=== PATIENT | male | born 1955 | race Caucasian/White ===

== ENCOUNTER 2021-11-02 07:51 | Emergency (ER) | payer MEDICARE, OTHER, SELFPAY ==
[2021-11-02 08:13] VITALS: BP 159/110; PULSE 100; RESP 22; TEMP 35.9; O2SAT 95
--- NOTE | 2021-11-02 08:14 | ED_ITS ---
HPI - Wound/Laceration General: Chief Complaint: Wound/Laceration Stated Complaint: R index finger lac Time Seen by Provider: 11/02/21 08:06 Source: patient Mode of arrival: ambulatory Limitations: no limitations History of Present Illness: 66-year-old male presents to the ER today for a left index finger laceration. Patient reports he was holding a glass jar and dropped it on the bathroom sink, cutting the left finger. Patient reports there is quite a bit of bleeding however he did clean it well at home. Patient reports last tetanus shot was unknown however he does not wish to have one today. Patient reports no pain and no issues with range of motion of that finger. Review of Systems General: Reports: 10 or more systems reviewed and unremarkable except in HPI and below PFSH ED PFSH: Medical History Benign diastolic hypertension BPH (benign prostatic hyperplasia) Degenerative joint disease of left hip Dermatitis Essential tremor Generalized anxiety disorder Generalized osteoarthritis Major depression KE (obstructive sleep apnea) Surgical History History of Achilles tendon repair History of arthroscopy of both knees History of cataract surgery History of tonsillectomy Family History Mother Lung disease emphysema Cancer throat Father CAD (coronary artery disease) Hypertension Diabetes Social History Smoking and tobacco status: former smoker Quit status (tobacco): has quit using tobacco Year quit tobacco: 2021 Alcohol intake: former Marital status: 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 Physical Exam Const: COMMON NORMALS: no acute distress, average body habitus, patient oriented x3, no limitations, alert and well nourished HENMT: COMMON NORMALS: external ears normal, Normal external nose present and moist oral mucous membranes NOSE: Normal external nose present EXTERNAL EAR: Yes external ears normal Eye: COMMON NORMALS: conjunctivae normal CONJUNCTIVA: Yes conjunctivae normal Resp: COMMON NORMALS: normal respiratory effort EFFORT & INSPECTION: Yes able to speak in complete sentences OTHER: some expiratory wheezes noted Cardio: COMMON NORMALS: regular rate and regular rhythm RATE: regular rate RHYTHM: regular rhythm Extremity: NARRATIVE EXTREMITY EXAM: Patient has normal range of motion of the left index finger. No numbness or tingling reported. Laceration noted to the tip of the left index finger Neuro: COMMON NORMALS: patient oriented x3 SENSORIUM/ORIENTATION: Yes alert Psych: COMMON NORMALS: mental status grossly normal, Normal thought process present and cooperative THOUGHT PROCESS: Normal thought process present Skin: NARRATIVE SKIN EXAM: Patient has a U-shaped laceration to the distal tip of the left index finger palmar side. There is active bleeding at this time. Procedures Laceration Laceration 1: Site: hand (left index finger) Side (If applicable): left Size (cm): 2 Description: other (ushaped) Depth: simple, single layer Local Anesthetic: lidocaine 2% Amount of anesthesia used (mL): 2 Pre-repair: irrigated extensively Skin layer closed with: other (ethilon) Size (cm): 5-0 Number of sutures: 2 Technique: simple, interrupted Course ED course: 66-year-old male presents to the ER today with a left index finger laceration. This occurred this morning as he was holding a glass jar and dropped it on the bathroom counter. Patient reports there was some bleeding at home and he cleaned the wound well. He reports his last tetanus shot is unknown however he does not wish to have one today. Patient denies any range of motion issues or numbness or tingling. Wound examined in the ER today and we will close with sutures. Vital Signs: Vital signs: Vital Signs Temperature 96.7 F L 11/02/21 08:13 Pulse Rate 100 11/02/21 08:13 Respiratory Rate 22 H 11/02/21 08:13 Blood Pressure 159/110 11/02/21 08:13 Pulse Oximetry 95 11/02/21 08:13 Oxygen Delivery Me thod 11/02/21 08:13 MDM - Wound/Laceration Medical Decision Making 66-year-old male presents to the ER today with a left index finger laceration. This occurred this morning as he was holding a glass jar and dropped it on the bathroom counter. Patient reports there was some bleeding at home and he cleaned the wound well. He reports his last tetanus shot is unknown however he does not wish to have one today. Patient denies any range of motion issues or numbness or tingling. Wound examined in the ER today and we will close with sutures. Wound was soaked in antibacterial soap and water and explored to make sure there were no foreign bodies. See laceration note for wound repair. Wound care discussed. Leave current dressing on x48 hours then remove it and clean wound once daily and apply a new dressing. Follow-up in 5 to 7 days with PCP for suture removal. Return to the ER with new or worsening symptoms. Patient verbalized understanding and was in agreement with the treatment plan. Critical Care Time Critical Care Time: Critical Care Time: No Discharge Plan Discharge Patient Disposition: Home Clinical Impression: Laceration of finger, index Qualifiers: Encounter type: initial encounter Damage to nail status: without damage Foreign body presence: without foreign body Laterality: left Qualified Code(s): S61.211A - Laceration without foreign body of left index finger without damage to nail, initial encounter Condition: Stable Prescriptions: No Action propranolol 60 mg capsule,extended release 24 hr 120 mg PO DAILY tamsulosin 0.4 mg capsule 0.4 mg PO DAILY venlafaxine 150 mg capsule,extended release 24hr 150 mg PO DAILY lisinopril 20 mg tablet 20 mg PO DAILY Combivent Respimat 20-100 mcg/actuation mist 1 puff inhalation Q6H Qty: 4 2RF benzonatate 100 mg capsule 100 mg PO TID PRN (Reason: cough) Qty: 45 0RF azithromycin 250 mg tablet See Rx Instructions PO .COMPLEX Qty: 6 0RF Rx Instructions: For 250 mg dose pack: take 500 mg today (day 1), then 250 mg for 4 days (days 2-5) PO albuterol sulfate [Ventolin HFA] 90 mcg/actuation HFA aerosol inhaler 1 inh inhalation QID PRN (Reason: shortness of breath or wheezing) Qty: 8.5 0RF Discharge Orders: Discharge ED (Routine); Ordered 11/02/21 Ordered By: Lizzeth Navas Referrals: Chilo Mendiola [employer] [Primary Care Provider] - Discharge Diet: Usual diet Discharge Activity: Resume usual activity Patient Instructions: Opioid Safety Activity Restrictions/Additional Instructions: Keep current dressing on x24 hours. Remove dressing in 24 hours and clean with warm soapy water and change dressing once daily. Recommend suture removal in 5 to 7 days. Return to the ER with new or worsening symptoms. Coding Level of Care Code ED Customer Counter Associate for Trevor Roman
[2021-11-02 08:49] VITALS: BP 157/119; PULSE 95; RESP 20; O2SAT 95
[2021-11-02] MEDS: lidocaine 2% INJ 20 mL INJECTION (08:53)
[2021-11-02 08:56] VITALS: BP 157/119; PULSE 95; RESP 20; O2SAT 95
== END 2021-11-02 08:55 | disposition home or self-care (01) ==
PROVIDERS: Emergency Provider Physician Assistant; PCP Clinical Nurse Specialist Adult Health
DX: S61.211A Laceration without foreign body of left index finger without damage to nail, initial encounter (principal); Z87.891 Personal history of nicotine dependence; W25.XXXA Contact with sharp glass, initial encounter
CPT/HCPCS: 12001; 99283

== ENCOUNTER 2022-01-15 19:45 | Emergency (ER) | payer MEDICARE, OTHER, SELFPAY ==
[2022-01-15] VITALS (11 sets, daily range): BP systolic 129–191; BP diastolic 81–143; PULSE 88–115; RESP 18–102; TEMP 36.4; O2SAT 92–97; BMI 36.6
--- NOTE | 2022-01-15 19:49 | XRR_ITS ---
PROCEDURE INFORMATION: Exam: XR Chest Exam date and time: 01/15/2022 8:13 PM Age: 66 years old Clinical indication: Other: Stroke TECHNIQUE: Imaging protocol: Radiologic exam of the chest. Views: 1 view. COMPARISON: CT cervical spin wo con* [id number] 01/15/2022 7:53 PM FINDINGS: Lungs: Mild right basilar atelectasis and/or pneumonia. Pleural spaces: Unremarkable. No pleural effusion. No pneumothorax. Heart/Mediastinum: Mild globular cardiomegaly consistent with 4-chamber enlargment and/or pericardial effusion. Bones/joints: Unremarkable. XR/XR chest 1V portable [id number] IMPRESSION: 1. Mild globular cardiomegaly consistent with 4-chamber enlargment and/or pericardial effusion. 2. Mild right basilar atelectasis and/or pneumonia.
--- NOTE | 2022-01-15 19:49 | CTR_ITS ---
PROCEDURE INFORMATION: Exam: CT Cervical Spine Without Contrast Exam date and time: 01/15/2022 7:53 PM Age: 66 years old Clinical indication: Patient HX: RT sided weakness; Additional info: AMS TECHNIQUE: Imaging protocol: Computed tomography of the cervical spine without contrast. Radiation optimization: All CT scans at this facility use at least one of these dose optimization techniques: automated exposure control; mA and/or kV adjustment per patient size (includes targeted exams where dose is matched to clinical indication); or iterative reconstruction. COMPARISON: CT head wo con* [id number] 01/15/2022 7:47 PM RADIATION DOSE METRICS: Total DLP (mGy-cm): 509.29 FINDINGS: Limitations: Study is mildly limited by patient motion. Bones/joints: There is reversal of the normal lordotic curvature of the cervical spine which could be due to positioning. There is foraminal narrowing bilaterally at C5-C6. Degenerative changes are present in facet joints bilaterally at multiple levels in the upper cervical spine. There is degenerative change in the anterior atlanto axial joint. There is an accessory ossicle below the arch of C1. No fracture is identified. Lungs: Lung apices are normal. Soft tissues: Unremarkable. Other findings: There is severe narrowing of the C5-C6 disc space with anterior and posterior osteophytes and sclerosis of the adjacent endplates in keeping with degenerative changes. CT/CT cervical spin wo con* [id number] IMPRESSION: 1. No fracture is identified. 2. Degenerative changes.
--- NOTE | 2022-01-15 19:49 | CTR_ITS ---
PROCEDURE INFORMATION: Exam: CT Head Without Contrast Exam date and time: 01/15/2022 7:54 PM Age: 66 years old Clinical indication: Stroke-like symptoms; RT upper extremity weakness; Additional info: Symptoms of acute stroke TECHNIQUE: Imaging protocol: Computed tomography of the head without contrast. Radiation optimization: All CT scans at this facility use at least one of these dose optimization techniques: automated exposure control; mA and/or kV adjustment per patient size (includes targeted exams where dose is matched to clinical indication); or iterative reconstruction. Other technique: STROKE PROTOCOL was implemented. COMPARISON: No relevant prior studies available. RADIATION DOSE METRICS: Total DLP (mGy-cm): 1017.38 FINDINGS: Limitations: Study is somewhat limited by patient motion. Brain: There is small old infarct in the mid left cerebellar hemisphere. There is moderate cortical atrophy. Low-density changes in the white matter are consistent with nonspecific small vessel chronic ischemic change. There is no intracranial mass, hemorrhage or edema. Cerebral ventricles: There is cavum septum pellucidum and vergae. Paranasal sinuses: There are multiple small mucous retention cysts in the bilateral maxillary antra. There is partial opacification of multiple ethmoid air cells. There is also some mucosal thickening in the frontal sinus which is not fully pneumatized. Mastoid air cells: Visualized mastoid air cells are well aerated. Bones/joints: Unremarkable. No acute fracture. Soft tissues: Unremarkable. Vasculature: There are findings suspicious for dense vessel sign in the left middle cerebral artery which would be worrisome for thrombotic disease. This is not a definite finding however due to the motion and other related artifacts on this exam. CT/CT head wo con* [id number] IMPRESSION: 1. Question of dense vessel sign left middle cerebral artery 2. Old left cerebellar infarct 3. No acute infarct is demonstrated. ASSESSMENT: ASPECTS ([place] Stroke Program Early CT Score) is 10.
--- NOTE | 2022-01-15 19:49 | ECG_ITS ---
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 Measurements Intervals [place] Rate: 104 P: CO: QRS: 86 QRSD: 154 T: 55 QT: 393 QTc: 518 Interpretive Statements ATRIAL FIBRILLATION WITH RAPID VENTRICULAR RESPONSE WITH ABERRANT CONDUCTION OR VENTRICULAR PREMATURE COMPLEXES INTRAVENTRICULAR CONDUCTION DELAY [130+ ms QRS DURATION] No previous ECG available for comparison Electronically Signed On 01-16-2022 8:24:34 CDT by Adan Capone M.D. [id number]
--- NOTE | 2022-01-15 19:49 | ED_ITS ---
HPI - Neuro Symptoms/Deficit General: Chief Complaint: Neuro Symptoms/Deficit Stated Complaint: STROKE Time Seen by Provider: 01/15/22 19:49 Limitations: other (acuity of condition) History of Present Illness: 66-year-old left-handed gentleman presenting to the emergency department as a stroke activation. He reportedly has been at baseline health and was last definitively normal at 5:30 PM on 01/15. He apparently was sitting on his computer when he felt abnormal and tried to get up at which point he fell to the ground. He was subsequently found and EMS was activated. EMS activated stroke code from the field due to facial droop and right-sided hemiparesis. No history of similar. Patient not on anticoagulation. Former smoker and does have a history of hypertension. Last Observed Normal: 17:30 Timing confirmed by: family member Location: speech, right face, right arm and right leg History of same: No Severity: severe Relieving factors: none Exacerbating factors: none On Anticoagulants: No Review of Systems General: Reports: 10 or more systems reviewed and unremarkable except in HPI and below PFSH ED PFSH: Medical History Benign diastolic hypertension BPH (benign prostatic hyperplasia) Degenerative joint disease of left hip Dermatitis Essential tremor Generalized anxiety disorder Generalized osteoarthritis Major depression KE (obstructive sleep apnea) Surgical History History of Achilles tendon repair History of arthroscopy of both knees History of cataract surgery History of tonsillectomy Family History Mother Lung disease emphysema Cancer throat Father CAD (coronary artery disease) Hypertension Diabetes Social History Smoking and tobacco status: former smoker Quit status (tobacco): has quit using tobacco Year quit tobacco: 2021 Alcohol intake: former Marital status: 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 NIH stroke score NIHSS: Level Of Consciousness - 1a: 0 Level Of Consciousness Questions - 1b: Both Correct Level Of Consciousness Commands - 1c: Both Correct Best Gaze - 2: Partial Gaze Palsy Visual [place] - 3: Partial Hemianopia Facial Palsy - 4: Partial Paralysis Motor Arm Right - 5: No Movement Motor Arm Left - 5: No Drift Motor Leg Right - 6: No Effort Against [place] Motor Leg Left - 6: No Drift Limb Ataxia - 7: Absent Sensory - 8: Severe To Total Loss Best Language - 9: Mild/Moderate Aphasia Dysarthia - 10: Mild/Moderate Dysarthia Extinction And Inattention - 11: 1 Score: Total Score: 16 Physical Exam Const: COMMON NORMALS: alert GENERAL APPEARANCE: cooperative and well developed HENMT: COMMON NORMALS: normocephalic and atraumatic HEAD & SCALP: normocephalic and atraumatic Eye: COMMON NORMALS: conjunctivae normal CONJUNCTIVA: Yes conjunctivae normal SCLERA: sclerae normal Neck/C-Spine: COMMON NORMALS: supple GENERAL: Yes trachea midline Resp: COMMON NORMALS: clear to auscultation bilaterally EFFORT & INSPECTION: Yes able to speak in complete sentences AUSCULTATION: clear to auscultation bilaterally Cardio: COMMON NORMALS: regular rate and regular rhythm RATE: regular rate RHYTHM: regular rhythm GI: COMMON NORMALS: Soft to palpation PALPATION: Yes Soft to palpation and No Tenderness to palpation present (GI) Extremity: NARRATIVE EXTREMITY EXAM: Superficial abrasions noted to bilateral lower extremities GENERAL: Yes normal exam except as noted and No edema Neuro: COMMON NORMALS: moves all extremities SENSORIUM/ORIENTATION: Yes alert and No Orientation impaired OTHER: Right forehead sparing facial droop. There appears to be left-sided gaze preference. Right hemianopia. Right-sided upper and lower extremity flaccid paralysis with absence of sensation. Psych: COMMON NORMALS: mental status grossly normal and Normal thought process present THOUGHT PROCESS: Normal thought process present Course ED course: - Patient was seen and evaluated by me at bedside - Patient placed on cardiac monitors, IV access obtained - Initial evaluation notable for exam as above. NIHSS 16 - Some delay in obtaining adequate CT head without contrast secondary to patient movement artifact and required multiple free scans. Given possible history of fall CT cervical spine was included. - Discussed with patient, patient's , and also our neurology service. Plan to proceed with tPA administration. Blood pressure controlled with labetalol. - Labs notable for no leukocytosis, normal hemoglobin. Metabolic panel without acute electrolyte derangement to explain symptoms. Glucose 179. Initial troponin mildly elevated at 25 ng/L though patient has not had chest pain. No evidence of UTI, blood in urine likely secondary to Jonas catheter placement. Toxic ingestions negative. - Imaging notable for no acute intracranial hemorrhage or mass-effect. Dense vessel sign of the left MCA questionable. Chest x-ray with cardiomegaly. After tPA initiation patient returned to CT scanner for CTA head and neck. Patient appears to have various incidental findings however most pertinent M2 and M3 segment occlusions. - Upon serial reexamination after treatment the patient was similar without significant improvement after tPA administration. - Based on patient history, evaluation, and testing as interpreted the most likely cause of the patient's condition is acute ischemic stroke with occlusion of M2 and M3 segments. - The results of ED evaluation were discussed with the patient including plan for transfer due to requirement for level of care not available if discharged to prevent significant worsening/deterioration. - Discussed with neurology stroke team at [facility] [place] in [place] who accepted the patient for Dr. Etienne with neuro interventional radiology. Plan to be a direct admit the patient will stop in emergency department for CTP. Note: Click bubbles or prepopulated [place] in note writing are used for assistance with data collection and billing and are inherently more limited than narrative and other text portions of this note. Please use narrative for additional cli nical history and defer to narrative/free test for any case of contradictory information. If information appears in only free text or click bubble it should be considered present or absent as reported. Please contact note principal technical writer for clarifications of clinical information or contradictory information. MDM is a brief summary, contradictory or erroneous seeming information should be clarified and full note should be reviewed. Vital Signs: Vital signs: Vital Signs Temperature 97.5 F L 01/15/22 20:03 Pulse Rate 103 H 01/15/22 22:35 Respiratory Rate 102 H 01/15/22 22:35 Blood Pressure 141/92 01/15/22 22:35 Pulse Oximetry 96 01/15/22 22:35 Oxygen Delivery Me thod 01/15/22 21:53 Oxygen Flow Rate 2 01/15/22 21:53 MDM - Neuro Symptoms/Deficit Medical Decision Making 66-year-old gentleman without known history of stroke or brain abnormality presenting with strokelike symptoms with last known normal 5:30 PM on 01/15. N IHSS 16 most notably for right-sided deficits and left gaze preference. tPA administered without significant improvement. CTA shows M2 and M3 segments occlusion which may be amenable to endovascular retrieval. Patient accepted to [facility] for additional neurologic evaluation and interventional neurology. Medical Records I reviewed the patient's medical records. Lab Data I reviewed the patient's lab results. : 01/15/22 20:05 01/15/22 20:05 Radiology Impressions Cervical Spine CT 01/15/22 19:49 IMPRESSION: 1. No fracture is identified. 2. Degenerative changes. Chest X-Ray 01/15/22 19:49 IMPRESSION: 1. Mild globular cardiomegaly consistent with 4-chamber enlargment and/or pericardial effusion. 2. Mild right basilar atelectasis and/or pneumonia. Head CT 01/15/22 19:49 IMPRESSION: 1. Question of dense vessel sign left middle cerebral artery 2. Old left cerebellar infarct 3. No acute infarct is demonstrated. ASSESSMENT: ASPECTS (Rayne Stroke Program Early CT Score) is 10. ADDENDUM: 01/15/222029 Addendum: THIS REPORT CONTAINS FINDINGS THAT MAY BE CRITICAL TO PATIENT CARE. The findings were verbally communicated via telephone conference with Manuel Miranda at 8:28 PM CDT on 01/15/2022. The findings were acknowledged and understood. Head/Neck CTA 01/15/22 20:27 IMPRESSION: Occlusion of 2 of the 3 left MCA branches including the M2 segment and portions of the M3 segment with reconstitution of the distal M3 segment and M4 segment from collateral flow. IMPRESSION: 1. Mild groundglass opacities and/or interstitial opacities consistent with mild allergic pneumonitis, infectious pneumonitis, atypical pulmonary edema and/or volume overload. 2. 2.2 cm left thyroid nodule on coronal series 6, images 126-127, with recommendation for nonemergent thyroid ultrasound to rule out neoplasm. 3. Codominant vertebral arteries. 4. C-shaped tortuosity of the proximal cervical ICAs bilaterally which are retropharyngeal in the region of the hypopharynx. Axial series 4, image 181. 5. Motion artifact in the region of the right carotid bifurcation and origin of the right ICA. Minimum proximal right ICA diameter 4 mm in the region of motion artifact with more distal diameter of 4 mm. 6. No right ICA stenosis by NASCET/SRU criteria. 7. Mild 25% left ICA stenosis secondary to prominent noncalcified plaque in the proximal left ICA, by direct measurement using NASCET criteria. COMMENTS: Consistent with the [employer]'s Incidental Findings Committee white paper (J Am Che Radiol 2015): In patients aged 35 years and older with an incidental thyroid nodule equal to or greater than 1.[address], MRI or extrathyroidal US, further evaluation with dedicated thyroid US is recommended for patients with normal life expectancy and without comorbidities. For smaller nodules without suspicious features, no further evaluation or follow up is recommended. REFERENCES: NASCET CRITERIA. The degree of stenosis in the cervical segment of the internal carotid artery is based on NASCET criteria. Normal is no stenosis. Mild is less than 50% stenosis. Moderate is 50-69% stenosis. Severe is 70% to 99% stenosis. Total occlusion is no detectable patent lumen. ADDENDUM: 01/15/222228 THIS REPORT CONTAINS FINDINGS THAT MAY BE CRITICAL TO PATIENT CARE. The findings were verbally communicated via telephone conference with Manuel Miranda at 10:27 PM CDT on 01/15/2022. The findings were acknowledged and understood. Laboratory Results WBC 8.8 10^3/uL (4.0-10.0) 01/15/22 20:05 RBC 5.20 10^6/uL (4.1-5.3) 01/15/22 20:05 Hgb 16.1 g/dL (11.7-16.6) 01/15/22 20:05 Hct 47.5 % (42.0-52.0) 01/15/22 20:05 MCV 91.3 fl (80-94) 01/15/22 20:05 MCH 31.0 pg (28.0-34.0) 01/15/22 20:05 MCHC 33.9 g/dL (30.0-36.0) 01/15/22 20:05 RDW 13.2 % (12.1-15.1) 01/15/22 20:05 Plt Count 219 10^3/cmm (130-400) 01/15/22 20:05 MPV 10.2 fL (7.4-10.4) 01/15/22 20:05 Neut % (Auto) 79.3 % 01/15/22 20:05 Lymph % (Auto) 11.3 % 01/15/22 20:05 [place] % (Auto) 5.9 % 01/15/22 20:05 Eos % (Auto) 2.2 % 01/15/22 20:05 Baso % (Auto) 0.8 % 01/15/22 20:05 Neut # (Auto) 6.98 10^3/uL (1.8-7.7) 01/15/22 20:05 Lymph # (Auto) 1.0 10^3/uL (0.8-4.8) 01/15/22 20:05 [place] # (Auto) 0.5 10^3/uL (0.2-0.9) 01/15/22 20:05 Eos # (Auto) 0.2 10^3/uL (0.0-0.8) 01/15/22 20:05 Baso # (Auto) 0.1 10^3/uL (0.0-0.1) 01/15/22 20:05 Nucleated RBC % (auto) 0 % 01/15/22 20:05 Nucleated RBCs # 0.0 /100WBC 01/15/22 20:05 PT 13.60 SECONDS (12.1-14.9) 01/15/22 20:05 INR 1.01 (0.8-1.2) 01/15/22 20:05 APTT 22.4 SECONDS (23.9-36.7) L 01/15/22 20:05 Sodium 140 mmol/L (136-145) 01/15/22 20:05 Potassium 4.0 mmol/L (3.5-5.1) 01/15/22 20:05 Chloride 104 mmol/L (98-107) 01/15/22 20:05 Carbon Dioxide 23 mmol/L (22-29) 01/15/22 20:05 Anion Gap 17.0 (5-19) 01/15/22 20:05 BUN 18 mg/dL (8-23) 01/15/22 20:05 Creatinine 0.8 mg/dL (0.7-1.2) 01/15/22 20:05 GFR Calculation 96.1 mL/min (90-130) 01/15/22 20:05 Glucose 179 mg/dL (65-115) H 01/15/22 20:05 Calculated Osmolality 296 mOsm/kg (285-295) H 01/15/22 20:05 Calcium 9.1 mg/dL (8.5-10.5) 01/15/22 20:05 Total Bilirubin 0.3 mg/dL (0.15-1.2) 01/15/22 20:05 AST 24 U/L (0-40) 01/15/22 20:05 ALT 24 U/L (0-41) 01/15/22 20:05 Alkaline Phosphatase 108 U/L (40-130) 01/15/22 20:05 Troponin T Baseline 25 ng/L (0-15) H 01/15/22 21:00 Total Protein 6.8 g/dL (6.6-8.7) 01/15/22 20:05 Albumin 4.1 g/dL (3.5-5.2) 01/15/22 20:05 Globulin 2.7 g/dL (1.3-4.6) 01/15/22 20:05 Urine Color Yellow (Yellow) 01/15/22 20:34 Urine Appearance Clear (CLEAR) 01/15/22 20:34 Urine pH 5 (5-7) 01/15/22 20:34 Ur Specific [place] 1.025 (1.005-1.030) 01/15/22 20:34 Urine Protein 3+ (Negative) H 01/15/22 20:34 Urine Glucose (UA) Trace (Normal) H 01/15/22 20:34 Urine Ketones 1+ (Negative) H 01/15/22 20:34 Urine Blood 2+ (Negative) H 01/15/22 20:34 Urine Nitrate Negative (Negative) 01/15/22 20:34 Urine Bilirubin 1+ (Negative) H 01/15/22 20:34 Urine Urobilinogen 1 mg/dL (Negative) H 01/15/22 20:34 Ur Leukocyte Esterase Negative (Negative) 01/15/22 20:34 Urine RBC 25-40 /hpf (0-2) H 01/15/22 20:34 Urine WBC 0-4 /hpf (0-5) H 01/15/22 20:34 Ur Squamous Epith Cells 0-4 /hpf (0-5) H 01/15/22 20:34 Amorphous Sediment 1+ /hpf 01/15/22 20:34 Urine Bacteria None /hpf (NONE) 01/15/22 20:34 Hyaline Casts 5-10 /lpf H 01/15/22 20:34 Fine Granular Casts 0-4 /lpf H 01/15/22 20:34 Urine Mucus 2+ /hpf 01/15/22 20:34 Salicylates < 0.3 mg/dL (3-10) L 01/15/22 20:05 Urine Opiates Screen Negative ng/mL (Negative) 01/15/22 20:34 Acetaminophen < 5.0 ug/mL (10-30) L 01/15/22 20:05 Ur Barbiturates Screen Negative ng/mL (Negative) 01/15/22 20:34 Ur Phencyclidine Scrn Negative ng/mL (Negative) 01/15/22 20:34 Ur Amphetamines Screen Negative ng/mL (Negative) 01/15/22 20:34 U Benzodiazepines Scrn Negative ng/mL (Negative) 01/15/22 20:34 Urine Cocaine Screen Negative ng/mL (Negative) 01/15/22 20:34 U Marijuana (THC) Screen Negative ng/mL (Negative) 01/15/22 20:34 Ethyl Alcohol < 10 mg/dL (0-10) 01/15/22 20:05 Critical Care Time Critical Care Time: Critical Care Time: Yes Total Critical Care Time: 75 Attestation: Due to a high probability of clinically significant, possibly life threatening deterioration, the patient required my highest level of attention and preparedness to intervene emergently and I personally spent this critical care time directly and personally managing the patient. This critical care time included obtaining a history; examining the patient; pulse oximetry; ordering and review of laboratory and imaging studies; arranging urgent treatment with development of a management plan; evaluation of patient's response to treatment; frequent reassessment; and, discussions with other providers as applicable. It was exclusive of separately billable procedures. Primary system involved is neurovascular Discharge Plan Discharge Patient Disposition: Xfer Short-Term Hosp Clinical Impression: Cerebrovascular accident, Atrial fibrillation, new onset Condition: Stable Referrals: Chilo Mendiola NP [Primary Care Provider] - Coding Level of Care Code ED Electron Microprobe Operator for Ivang Fwd Exam Comprehensive
[2022-01-15 20:13] LABS: Basophils # 0.1 10^3/uL (0.0-0.1); Basophils % 0.8 %; Eosinophils # 0.2 10^3/uL (0.0-0.8); Eosinophils % 2.2 %; Hematocrit 47.5 % (42.0-52.0); Hemoglobin 16.1 g/dL (11.7-16.6); Lymphocytes % 11.3 %; Mean Corpuscular HGB Conc 33.9 g/dL (30.0-36.0); Mean Corpuscular Volume 91.3 fl (80-94); Mean Platelet Volume 10.2 fL (7.4-10.4); Monocytes # 0.5 10^3/uL (0.2-0.9); Monocytes % 5.9 %; Neutrophils # 6.98 10^3/uL (1.8-7.7); Neutrophils % 79.3 %; Nucleated Red Blood Cells % 0 %; Platelet Count 219 10^3/cmm (130-400); Red Cell Distribution Width 13.2 % (12.1-15.1); White Blood Count 8.8 10^3/uL (4.0-10.0)
[2022-01-15] MEDS: labetalol 5 mg/mL SDV 20mL 20 MG IVP ×2 (20:14→20:31)
[2022-01-15 20:24] LABS: INR 1.01 (0.8-1.2)
[2022-01-15 20:26] LABS: Partial Thromboplastin Time 22.4 SECONDS (23.9-36.7)
--- NOTE | 2022-01-15 20:27 | CTR_ITS ---
PROCEDURE INFORMATION: Exam: CTA Head With Contrast, Arteriography Exam date and time: 01/15/2022 8:53 PM Age: 66 years old Clinical indication: Stroke-like symptoms; Right facial droop; RT upper extremity and RT lower extremity weakness TECHNIQUE: Imaging protocol: Computed tomographic angiography of the head with contrast. Exam focused on the arteries. 3D rendering (Not supervised by radiologist): MIP and/or 3D reconstructed images were created by the technologist. Radiation optimization: All CT scans at this facility use at least one of these dose optimization techniques: automated exposure control; mA and/or kV adjustment per patient size (includes targeted exams where dose is matched to clinical indication); or iterative reconstruction. Contrast material: OMNI 350; Contrast volume: 100 ml; Contrast route: INTRAVENOUS (IV); COMPARISON: CT head wo con* [id number] 01/15/2022 7:47 PM RADIATION DOSE METRICS: Total DLP (mGy-cm): 607.02 FINDINGS: ANTERIOR CIRCULATION: Right internal carotid artery: Calcified plaque in the right cavernous ICA without significant stenosis. Right middle cerebral artery: No occlusion or significant stenosis. No aneurysm. Right anterior cerebral artery: No occlusion or significant stenosis. No aneurysm. Anterior communicating artery: Patent anterior communicating artery. Left internal carotid artery: Calcified plaque in the left cavernous ICA without significant stenosis. Left middle cerebral artery: Occlusion of 2 of the 3 left MCA branches including the M2 segment and portions of the M3 segment with reconstitution of the distal M3 segment and M4 segment from collateral flow. Left anterior cerebral artery: No occlusion or significant stenosis. No aneurysm. POSTERIOR CIRCULATION: Right vertebral artery: No occlusion or significant stenosis. No aneurysm. Left vertebral artery: No occlusion or significant stenosis. No aneurysm. Basilar artery: No occlusion or significant stenosis. No aneurysm. Right posterior cerebral artery: No occlusion or significant stenosis. No aneurysm. Left posterior cerebral artery: No occlusion or significant stenosis. No aneurysm. Brain: No definite mass, mass effect, or midline shift. Cerebral ventricles: No ventriculomegaly. Bones/joints: Unremarkable. No acute fracture. Soft tissues: Unremarkable. Other findings: Codominant vertebral arteries. PROCEDURE INFORMATION: Exam: CTA Neck With Contrast Exam date and time: 01/15/2022 8:53 PM Age: 66 years old Clinical indication: Stroke-like symptoms; Right facial droop; RT upper extremity and RT lower extremity weakness TECHNIQUE: Imaging protocol: Computed tomographic angiography of the neck with contrast. 3D rendering (Not supervised by radiologist): MIP and/or 3D reconstructed images were created by the technologist. Radiation optimization: All CT scans at this facility use at least one of these dose optimization techniques: automated exposure control; mA and/or kV adjustment per patient size (includes targeted exams where dose is matched to clinical indication); or iterative reconstruction. Contrast material: OMNI 350; Contrast volume: 100 ml; Contrast route: INTRAVENOUS (IV); COMPARISON: CT cervical spin wo con* [id number] 01/15/2022 7:53 PM RADIATION DOSE METRICS: Total DLP (mGy-cm): 607.02 FINDINGS: Right common carotid artery: Motion artifact in the region of the right carotid bifurcation and origin of the right ICA. Right internal carotid artery: No right ICA stenosis by NASCET/SRU criteria. Right external carotid artery: No occlusion or stenosis of the origin. Left common carotid artery: No stenosis. No dissection or occlusion. Left internal carotid artery: Spiral tortuosity of the left ICA without kinking. 3 mm minimum diameter proximal left ICA patent lumen with large noncalcified plaque posterolaterally. 4 mm diameter more distally. Mild 25% left ICA stenosis secondary to prominent noncalcified plaque in the proximal left ICA, by direct measurement using NASCET criteria. Left external carotid artery: No occlusion or stenosis of the origin. Right vertebral artery: No stenosis. No dissection or occlusion. Left vertebral artery: No stenosis. No dissection or occlusion. Aorta: Calcification of the thoracic aorta and/or great vessels consistent with atherosclerotic vessel disease. Thyroid: 2.2 cm left thyroid nodule on coronal series 6, images 126-127, with recommendation for nonemergent thyroid ultrasound to rule out neoplasm. Soft tissues: C-shaped tortuosity of the proximal cervical ICAs bilaterally which are retropharyngeal in the region of the hypopharynx. Axial series 4, image 181. Bones/joints: Moderate to severe multilevel spine degenerative changes including degenerative disc disease, spondylosis and facet degenerative changes. Mild kyphosis which may be secondary to patient positioning and/or muscle spasm and/or multilevel degenerative change. Multilevel bilateral foraminal stenosis. Lungs: Mild groundglass opacities and/or interstitial opacities consistent with mild allergic pneumonitis, infectious pneumonitis, atypical pulmonary edema and/or volume overload. Other findings: Examination is limited secondary to motion artifact. Ligamentum nuchae ossification/calcification. Codominant vertebral arteries. CT/CT angio headneck* [id number] IMPRESSION: Occlusion of 2 of the 3 left MCA branches including the M2 segment and portions of the M3 segment with reconstitution of the distal M3 segment and M4 segment from collateral flow. IMPRESSION: 1. Mild groundglass opacities and/or interstitial opacities consistent with mild allergic pneumonitis, infectious pneumonitis, atypical pulmonary edema and/or volume overload. 2. 2.2 cm left thyroid nodule on coronal series 6, images 126-127, with recommendation for nonemergent thyroid ultrasound to rule out neoplasm. 3. Codominant vertebral arteries. 4. C-shaped tortuosity of the proximal cervical ICAs bilaterally which are retropharyngeal in the region of the hypopharynx. Axial series 4, image 181. 5. Motion artifact in the region of the right carotid bifurcation and origin of the right ICA. Minimum proximal right ICA diameter 4 mm in the region of motion artifact with more distal diameter of 4 mm. 6. No right ICA stenosis by NASCET/SRU criteria. 7. Mild 25% left ICA stenosis secondary to prominent noncalcified plaque in the proximal left ICA, by direct measurement using NASCET criteria. COMMENTS: Consistent with the [employer]'s Incidental Findings Committee white paper (J Am Che Radiol 2015): In patients aged 35 years and older with an incidental thyroid nodule equal to or greater than 1.[address], MRI or extrathyroidal US, further evaluation with dedicated thyroid US is recommended for patients with normal life expectancy and without comorbidities. For smaller nodules without suspicious features, no further evaluation or follow up is recommended. REFERENCES: NASCET CRITERIA. The degree of stenosis in the cervical segment of the internal carotid artery is based on NASCET criteria. Normal is no stenosis. Mild is less than 50% stenosis. Moderate is 50-69% stenosis. Severe is 70% to 99% stenosis. Total occlusion is no detectable patent lumen.
[2022-01-15 20:34] LABS: Acetaminophen < 5.0 ug/mL (10-30); Alanine Aminotransferase 24 U/L (0-41); Albumin Level 4.1 g/dL (3.5-5.2); Alcohol Level < 10 mg/dL (0-10); Alkaline Phosphatase 108 U/L (40-130); Aspartate Amino Transferase 24 U/L (0-40); Blood Urea Nitrogen 18 mg/dL (8-23); Calcium 9.1 mg/dL (8.5-10.5); Carbon Dioxide 23 mmol/L (22-29); Chloride 104 mmol/L (98-107); Globulin 2.7 g/dL (1.3-4.6); Glomerular Filtration Rate 96.1 mL/min (90-130); Glucose 179 mg/dL (65-115); Osmolality Calculated 296 mOsm/kg (285-295); Salicylate < 0.3 mg/dL (3-10); Sodium 140 mmol/L (136-145); Total Bilirubin 0.3 mg/dL (0.15-1.2); Total Protein 6.8 g/dL (6.6-8.7)
[2022-01-15 20:52] LABS: Amphetamines Screen Urine Negative (Negative); Barbiturates Screen Urine Negative (Negative); Benzodiazepines Screen Urine Negative (Negative); Cocaine Screen Urine Negative (Negative); Opiate Screen Urine Negative (Negative); PCP Screen Urine Negative (Negative); THC Screen Urine Negative (Negative)
[2022-01-15] MEDS: iohexol 350 mg/mL 100 mL Btl IV (20:58)
[2022-01-15 21:02] LABS: Urine Appearance Clear (CLEAR); Urine Color Yellow (Yellow)
[2022-01-15 21:03] LABS: Add Urine Microscopic? YES; Bilirubin Urine 1+ (Negative); Blood Urine 2+ (Negative); Glucose Urine UA Trace (Normal); Ketones Urine 1+ (Negative); Leukocyte Esterase Urine Negative (Negative); Nitrate Urine Negative (Negative); Protein Urine 3+ (Negative); Specific Gravity, Urine 1.025 (1.005-1.030); Urobilinogen Urine 1 mg/dL (Negative); pH Urine 5 (5-7)
[2022-01-15 21:04] LABS: Amorphous Sediment Urine 1+ /hpf; Fine Granular Casts Urine 0-4 /lpf; Mucus Urine 2+ /hpf; RBC Urine 25-40 /hpf (0-2); Squamous Epithelial Cell Urine 0-4 /hpf (0-5); WBC Urine 0-4 /hpf (0-5)
[2022-01-15 21:05] LABS: Add Urine Culture? No
[2022-01-15] MEDS: tetanus-dipt-pertussis 0.5 mL SDV IM (21:09)
[2022-01-15 21:21] LABS: Troponin(5th) Baseline 25 ng/L (0-15)
[2022-01-15] MEDS: sodium chloride 0.9% 1,000 ML 999 ML IV (21:44)
--- NOTE | 2022-01-17 07:56 | P.PNCC_ITS ---
Stroke Alert Activation ED Arrival Date: 01/15/22 ED Arrival Time: 19:46 ED Physican at Bedside: 19:49 Last Known Normal/at Baseline: 1-2 hours ago Other Last Known Well Infomation: I was called for stroke alert at 1944 and immediately called back to the emergency department. I learned that the patient was presenting with acute left hemiparesis and that Dr. Manuel Miranda would be managing his care. I put in a request to Dr. Miranda call me as soon as he had evaluated the patient. Dr. Miranda returned my call after performing an NIH stroke scale. He reported that the patient's blood pressure was 190/120 and I advised him to go ahead with acute treatment of blood pressure right away and advised nursing to be prepared with tPA. After he gave the order for labetalol I asked him to call me on FaceTime so that we could review the CAT scan of the head. It was evident that the patient had an occluded left middle cerebral artery based on the density within that artery. I reviewed the patient's exam and observed dense right hemiplegia but preserved speech and questioning the patient confirmed that he is sinistral. He had a left gaze preference and Dr. Miranda observed Partial hemianopia on right which was consistent with his other findings. I advised Dr. Miranda to proceed with CTA once bolus of tPA was administered and tPA was hanging and prepare for transfer for embolectomy. Dr. Miranda indicated that the long delay between the patient's presentation and his call to me was related to difficulty obtaining CAT scan images. Dr. Miranda did not document my view of the patient or his review of the CT with me but he did document his discussion with Emily in [place] after the CTA confirmed left middle cerebral artery occlusion. It looks like the patient received bolus of tPA at 2026 documented by [facility] Stroke Alert Activated by: EMS Stroke Alert Activation Time: 19:44 Stroke MD @ Bedside Time: 19:44 NIH Stroke Scale Time: 20:10 NIH stroke score NIHSS: Level Of Consciousness - 1a: 0 Level Of Consciousness Questions - 1b: Both Correct Level Of Consciousness Commands - 1c: Both Correct Best Gaze - 2: Partial Gaze Palsy Visual [place] - 3: Partial Hemianopia Facial Palsy - 4: Partial Paralysis Motor Arm Right - 5: No Effort Against [place] Motor Arm Left - 5: No Drift Motor Leg Right - 6: Effort Against [place] Motor Leg Left - 6: No Drift Limb Ataxia - 7: Absent Sensory - 8: Mild To Moderate Loss Best Language - 9: No Aphasia Dysarthia - 10: Mild/Moderate Dysarthia Extinction And Inattention - 11: 0 Score: Total Score: 11 Stroke Alert Data/Treatment CT Results Time: 20:10 CT Impression: Density within the left middle cerebral artery consistent with an acute thrombus. No parenchymal changes tPA Started Time: tPA Started - Time: 20:27 tPA Admin Prior to Arrival: No Other Information: Patient was transferred to [facility] for thrombectomy Critical Care Time Critical Care Time: less than 30 mins Additional information about critical care time: 35 minutes A&P Assessment and plan (1) Left acute arterial ischemic stroke, MCA (middle cerebral artery): Acute left middle cerebral artery stroke in a sinistral gentleman who has preserved speech, consistent with right sided speech dominance. He has a high NIH stroke scale and a density on CT confirmed by CT angiogram to be in acute embolus occluding 2 out of 3 branches of the left middle cerebral artery. Coding Level of Care Code Acute Investment Representative for Trevor Roman Diagnoses Left acute arterial ischemic stroke, MCA (middle cerebral artery) I63.512
== END 2022-01-15 22:49 | disposition short-term general hospital (02) ==
PROVIDERS: Emergency Provider Emergency Medicine; PCP Clinical Nurse Specialist Adult Health
DX: I63.9 Cerebral infarction, unspecified (principal); I48.91 Unspecified atrial fibrillation; Z87.891 Personal history of nicotine dependence; Z23 Encounter for immunization
CPT/HCPCS: 51702; 70450; 70496; 70498; 71045; 72125; 80053; 80306; 80307; 81001; 84484; 85025; 85610; 85730; 90471; 90715; 93005; 96361; 96374; 96375; 96376; 99285; 99291; 99292; J2997; J3490; J7030; Q9967